=== PATIENT | female | born 1940 | race Caucasian/White ===

== ENCOUNTER 2021-05-09 10:41 | Outpatient (CLI) | payer MEDICARE, BC | END 2021-05-09 10:42 | disposition home or self-care (01) | LOC: LABBT 10:41 → EDBD 10:41 → LABBT 10:42 | PROVIDERS: ATTEND Orthopaedic Surgery | DX: Z01.818 Encounter for other preprocedural examination (principal); M17.0 Bilateral primary osteoarthritis of knee; Z20.822 Contact with and (suspected) exposure to COVID-19 | CPT/HCPCS: 71046; 80048; 81001; 85025; 85610; 86850; 86900; 86901; 87081; U0003; U0005; 93005; 93010 ==

== ENCOUNTER 2021-05-14 07:25 | Day surgery (SDC) | payer MEDICARE, BC ==
[2021-05-09 12:47] LABS: #Eosinphils 0.3 10x3/uL (0.0-0.5); #Monocytes 0.5 10x3/uL (0.0-1.1); #Neutrophils 3.4 10x3/uL (1.5-8.4); %Basophils 0.4 % (0.0-2.0); %Eosinophils 4.6 % (0.0-6.0); %Lymphocytes 25.2 % (18.0-47.0); %Monocytes 9.6 % (0.0-10.0); %Neutrophils 59.8 % (40.0-75.0); Bilirubin Neg (Negative); Blood, Urine Negative (Negative); Clarity Clear (Clear); Glucose, Urine (Dipstick) Normal (Negative); Hemoglobin 13.6 g/dL (12.0-15.5); Ketone, Urine Negative (Negative); Leukocyte Negative (Negative); Mean Corpuscular HGB CONC 33.7 g/dL (32.0-36.0); Mean Corpuscular Hemoglobin 31.6 pg (27.0-33.0); Mean Corpuscular Volume 93.7 fl (81.6-98.3); Mean Platelet Volume 9.7 fl (7.4-10.4); Nitrite Negative (Negative); Platelet Count 239 10x3/uL (150-450); Protein, Urine (Dipstick) Negative (Neg-Trace); RBC Distribution Width 12.5 % (11.5-14.5); Red Blood Cell (RBC) Count 4.31 10x6/uL (3.90-5.03); Urobilinogen Normal mg/dL (Less than 2); White Blood Cell (WBC) Count 5.6 10x3/uL (3.5-10.5)
[2021-05-09 13:21] LABS: Bacteria/HPF None Seen HPF (None Seen); RBC/HPF None Seen HPF (0-3); Squamous Epithelial None Seen HPF (0-3); WBC/HPF None Seen HPF (0-3)
[2021-05-09 13:22] LABS: INR-International Normal Ratio 0.9; Prothrombin Time 10.3 sec (9.5-12.1)
[2021-05-09 13:26] LABS: Anion Gap 14 mmol/L (10-20); BUN (Urea Nitrogen) 17 mg/dL (9.8-20.1); Calc. Creatinine Clearance 0 mL/min (70-130); Calcium 10.5 mg/dL (7.8-10.44); Carbon Dioxide 29 mmol/L (23-31); Chloride 99 mmol/L (98-107); Glucose 93 mg/dL (83-110); Potassium 5.2 mmol/L (3.5-5.1); Sodium 137 mmol/L (136-145)
[2021-05-09 23:48] LABS: SARS-CoV-2 PCR by NAA Not Detected (NotDetected)
[2021-05-10 15:39] VITALS: BMI 31.4
[2021-05-14] MEDS ORDERED: ceFAZolin 2 GM/DEX 5% 100 ML BAG ONE (07:39)
[2021-05-14] MEDS ORDERED: Tranexamic Acid 1,000 MG/10 ML VIAL ONE ×2 (07:39→12:22)
[2021-05-14] MEDS ORDERED: Sodium Chloride 0.9% 100 ML ONE (07:39)
[2021-05-14] MEDS ORDERED: Vancomycin 1.5 GRAM/300 ML BAG 1.5 GM in Premix Bag 1 BAG IVPB SCH ×2 (07:45→21:00)
[2021-05-14] MEDS ORDERED: Midazolam HCl 2 mg/2 ml Vial ONE (08:47)
[2021-05-14] MEDS ORDERED: Fentanyl 100 MCG/2 ML VIAL ONE ×6 (08:47→13:19)
[2021-05-14] MEDS ORDERED: Scopolamine 1.5 mg/72 hour Patch ONE (09:02)
[2021-05-14] MEDS ORDERED: Ondansetron PF 4 MG/2 ML Vial ONE (09:03)
[2021-05-14] MEDS ORDERED: Bupivacaine PF 0.5% 30 ML VIAL ONE (09:16)
[2021-05-14] MEDS ORDERED: PROPOFOL 200 MG/20 ML VIAL ONE (09:30)
[2021-05-14] MEDS ORDERED: Dexamethasone 20 MG/5 ML VIAL ONE (09:30)
[2021-05-14] MEDS ORDERED: Bupivacaine HCl 0.5%/Epinephrine 1:200,000/PF 30 ml Vial ONE (09:30)
[2021-05-14] MEDS ORDERED: methylPREDNISolone Acetate 40 mg/ml Vial ONE (09:43)
[2021-05-14] MEDS ORDERED: Lidocaine 1% (PF) 30 ML VIAL ONE (09:44)
[2021-05-14] MEDS ORDERED: Fentanyl 100 MCG/2 ML VIAL SLOW IVP PRN (09:54)
[2021-05-14] MEDS ORDERED: Promethazine HCl 25 MG/ML VIAL IM PRN ×3 (10:00→11:45)
[2021-05-14] MEDS ORDERED: HYDROcodone/Acetaminophen 10/325 mg Tablet PO PRN (10:00)
[2021-05-14] MEDS ORDERED: Zolpidem Tartrate 5 MG TAB PO PRN ×2 (10:00→11:45)
[2021-05-14] MEDS ORDERED: Ondansetron PF 4 MG/2 ML Vial IVP PRN ×2 (10:00→11:45)
[2021-05-14] MEDS ORDERED: Ropivacaine HCl/PF 250 ML in Premix Bag 1 BAG NERVE BLCK SCH (10:00)
[2021-05-14] MEDS ORDERED: traMADol HCl 50 MG TAB PO PRN ×2 (10:00)
[2021-05-14] MEDS ORDERED: Ondansetron HCl/PF 4 MG/2 ML Vial IVP PRN (10:49)
[2021-05-14] MEDS ORDERED: Promethazine HCl 25 MG/ML VIAL IVPB PRN (10:49)
[2021-05-14] MEDS ORDERED: diphenhydrAMINE 25 MG CAP PO PRN (11:45)
[2021-05-14] MEDS ORDERED: Tranexamic Acid 1,000 MG in Sodium Chloride 0.9% 100 ML IVPB SCH (11:45)
[2021-05-14] MEDS ORDERED: Acetaminophen 325 MG TAB PO PRN (11:45)
[2021-05-14] MEDS ORDERED: Ketorolac Tromethamine 30 MG/ML VIAL ONE (13:19)
[2021-05-14] MEDS: HYDROcodone/Acetaminophen 10/325 mg Tablet PO PRN (16:14)
[2021-05-14] MEDS: Ketorolac Tromethamine 30 MG/ML VIAL IVP SCH ×3 (16:19→23:15)
[2021-05-14] MEDS: Sodium Chloride 0.9% 1,000 ML IV SCH ×3 (16:19→23:17)
[2021-05-14] MEDS ORDERED: FLU VACC QS2021-22(65YR UP)/PF 240 MCG/0.7 ML SYRINGE IM ONE (18:15)
[2021-05-14] MEDS: ceFAZolin Sodium/D5W 2 GM in Premix Bag 1 BAG IVPB SCH ×2 (18:35→19:41)
[2021-05-14] MEDS: Aspirin 81 mg Enteric Coated Tablet PO SCH (19:52)
[2021-05-14] MEDS: Ferrous Gluconate 324 MG TAB PO SCH (19:53)
[2021-05-14] MEDS: Senokot S 8.6-50 MG TAB PO SCH (19:53)
[2021-05-15] MEDS: ceFAZolin Sodium/D5W 2 GM in Premix Bag 1 BAG IVPB SCH (01:26)
[2021-05-15] MEDS: Ketorolac Tromethamine 30 MG/ML VIAL IVP SCH ×2 (04:50→12:12)
[2021-05-15] MEDS ORDERED: Levothyroxine 175 MCG TAB PO SCH (06:00)
[2021-05-15 06:46] LABS: Hemoglobin 10.7 g/dL (12.0-16.0); Mean Corpuscular HGB CONC 33.1 g/dL (32.0-36.0); Mean Corpuscular Hemoglobin 32.5 pg (27.0-31.0); Mean Corpuscular Volume 98.2 fL (78.0-98.0); Mean Platelet Volume 6.8 fL (7.4-10.4); Platelet Count 189 thou/uL (130-400); RBC Distribution Width 11.7 % (11.5-14.5); Red Blood Cell (RBC) Count 3.28 mill/uL (4.20-5.40); White Blood Cell (WBC) Count 10.6 thou/uL (4.8-10.8)
[2021-05-15] MEDS: Aspirin 81 mg Enteric Coated Tablet PO SCH (08:32)
[2021-05-15] MEDS: Senokot S 8.6-50 MG TAB PO SCH (08:33)
[2021-05-15] MEDS: Ferrous Gluconate 324 MG TAB PO SCH (08:34)
[2021-05-15] MEDS: HYDROcodone/Acetaminophen 10/325 mg Tablet PO PRN ×2 (08:36→14:29)
[2021-05-15] MEDS ORDERED: Amlodipine 5 MG TAB PO SCH (09:00)
[2021-05-15] MEDS ORDERED: Triamterene/Hydrochlorothiazide 37.5 mg/25 mg Tablet PO SCH (09:00)
[2021-05-15] MEDS ORDERED: Multivitamin W/ Minerals 1 TAB PO SCH (09:00)
[2021-05-15] MEDS ORDERED: Lisinopril 20 MG TAB PO SCH (09:00)
[2021-05-15 12:01] VITALS: BP 116/64; TEMP 98.3
== END 2021-05-15 16:51 | disposition home or self-care (01) ==
LOC: EDBD → SDC 07:25 → SJJU 15:03 → SDC 05-15 16:51
PROVIDERS: ATTEND Orthopaedic Surgery
PROC: 3E0U33Z Introduction of Anti-inflammatory into Joints, Percutaneous Approach (ICD-10-PCS; principal; 2021-05-14)
PROC: 0SRC0J9 Replacement of Right Knee Joint with Synthetic Substitute, Cemented, Open Approach (ICD-10-PCS; 2021-05-14)
PROC: 8E0YXBZ Computer Assisted Procedure of Lower Extremity (ICD-10-PCS; 2021-05-14)
PROC: 3E0T3BZ Introduction of Anesthetic Agent into Peripheral Nerves and Plexi, Percutaneous Approach (ICD-10-PCS; 2021-05-14)
DX: M17.0 Bilateral primary osteoarthritis of knee (principal); E89.0 Postprocedural hypothyroidism; I10 Essential (primary) hypertension; E66.9 Obesity, unspecified; Z68.31 Body mass index [BMI] 31.0-31.9, adult; Z79.899 Other long term (current) drug therapy; Z20.822 Contact with and (suspected) exposure to COVID-19
CPT/HCPCS: 20610; 20985; 27447; 64448; 80048; 81001; 85025; 85027; 85610; 86850; 86900; 86901; 87081; 97110; 97116 ×2; 97139 ×2; 97530; C1713; C1776; U0003; U0005; 36415; J1100; J1885; J2001; J2250; J2405; J2704; J2795; J2920; J3010; J3370; J3490; J7050; S0020

== ENCOUNTER 2021-11-15 10:39 | Outpatient (CLI) | payer MEDICARE, BC ==
[2021-11-15 12:38] LABS: #Eosinphils 0.3 10x3/uL (0.0-0.5); #Monocytes 0.5 10x3/uL (0.0-1.1); #Neutrophils 3.8 10x3/uL (1.5-8.4); %Basophils 0.3 % (0.0-2.0); %Eosinophils 4.8 % (0.0-6.0); %Lymphocytes 21.3 % (18.0-47.0); %Monocytes 8.2 % (0.0-10.0); %Neutrophils 64.9 % (40.0-75.0); Hemoglobin 13.2 g/dL (12.0-15.5); Mean Corpuscular HGB CONC 32.6 g/dL (32.0-36.0); Mean Corpuscular Hemoglobin 31.4 pg (27.0-33.0); Mean Corpuscular Volume 96.2 fl (81.6-98.3); Mean Platelet Volume 9.6 fl (7.4-10.4); Platelet Count 253 10x3/uL (150-450); RBC Distribution Width 12.5 % (11.5-14.5); Red Blood Cell (RBC) Count 4.21 10x6/uL (3.90-5.03); White Blood Cell (WBC) Count 5.9 10x3/uL (3.5-10.5)
[2021-11-15 13:04] LABS: Anion Gap 14 mmol/L (10-20); BUN (Urea Nitrogen) 16 mg/dL (9.8-20.1); Calc. Creatinine Clearance 0 mL/min (70-130); Calcium 10.6 mg/dL (7.8-10.44); Carbon Dioxide 28 mmol/L (23-31); Chloride 100 mmol/L (98-107); Glucose 89 mg/dL (83-110); Potassium 4.3 mmol/L (3.5-5.1); Sodium 138 mmol/L (136-145)
[2021-11-16 01:01] LABS: SARS-CoV-2 PCR by NAA Not Detected (NotDetected)
== END 2021-11-15 10:40 | disposition home or self-care (01) ==
LOC: LABBT 10:39
PROVIDERS: ATTEND Orthopaedic Surgery
DX: Z01.818 Encounter for other preprocedural examination (principal); M12.812 Other specific arthropathies, not elsewhere classified, left shoulder; Z20.822 Contact with and (suspected) exposure to COVID-19
CPT/HCPCS: 80048; 85025; 93005; U0003; U0005; 93010

== ENCOUNTER 2021-11-20 06:20 | Observation (INO) | payer MEDICARE, BC ==
[2021-11-20] MEDS ORDERED: Vancomycin 1.5 GRAM/300 ML BAG 1.5 GM in Premix Bag 1 BAG IVPB SCH (07:15)
[2021-11-20] MEDS ORDERED: Tranexamic Acid 1,000 MG/10 ML VIAL ONE (07:24)
[2021-11-20] MEDS ORDERED: Sodium Chloride 0.9% 100 ML ONE (07:25)
[2021-11-20] MEDS ORDERED: Fentanyl 100 MCG/2 ML VIAL ONE ×2 (08:11→11:51)
[2021-11-20] MEDS ORDERED: Midazolam HCl 2 mg/2 ml Vial ONE (08:11)
[2021-11-20] MEDS ORDERED: fentaNYL Citrate/PF 100 MCG/2 ML SYRINGE ONE (08:32)
[2021-11-20] MEDS ORDERED: ceFAZolin (BATCH) 2 GM/100 ML BAG ONE (08:40)
[2021-11-20] MEDS ORDERED: Scopolamine 1.5 mg/72 hour Patch ONE (08:40)
[2021-11-20] MEDS ORDERED: Rocuronium Bromide 10 MG/ML (10ML VIAL) ONE (09:00)
[2021-11-20] MEDS ORDERED: PROPOFOL 200 MG/20 ML VIAL ONE (09:00)
[2021-11-20] MEDS ORDERED: Ondansetron PF 4 MG/2 ML Vial ONE ×3 (09:00→09:30)
[2021-11-20] MEDS ORDERED: Glycopyrrolate 0.2 MG/ML 5 ML SYRINGE ONE (09:00)
[2021-11-20] MEDS ORDERED: Bupivacaine HCl 0.5%/Epinephrine 1:200,000/PF 30 ml Vial ONE (09:00)
[2021-11-20] MEDS ORDERED: Dexamethasone 20 MG/5 ML VIAL ONE (09:00)
[2021-11-20] MEDS ORDERED: Lidocaine 1% PF 5 ML VIAL ONE (09:00)
[2021-11-20] MEDS ORDERED: PHENYLEPHRINE-NS 100 MCG/ML 10 ML SYRINGE ONE (09:00)
[2021-11-20] MEDS ORDERED: HYDROcodone/Acetaminophen 7.5/325 mg Tablet PO PRN ×2 (09:05)
[2021-11-20] MEDS ORDERED: Phenylephrine 10 MG/ML VIAL ONE (09:30)
[2021-11-20] MEDS ORDERED: Ropivacaine 0.2% 550 ML 550 ML NERVE BLCK SCH (09:45)
[2021-11-20] MEDS ORDERED: Ondansetron PF 4 MG/2 ML Vial IVP PRN (09:45)
[2021-11-20] MEDS ORDERED: Zolpidem Tartrate 5 MG TAB PO PRN (09:45)
[2021-11-20] MEDS ORDERED: HYDROcodone/Acetaminophen 5/325 mg Tablet PO PRN ×2 (09:45)
[2021-11-20] MEDS ORDERED: Ketorolac Tromethamine 30 MG/ML VIAL IVP PRN (09:45)
[2021-11-20] MEDS ORDERED: Fentanyl 100 MCG/2 ML VIAL IV PRN (09:45)
[2021-11-20] MEDS ORDERED: traMADol HCl 50 MG TAB PO PRN ×2 (09:45)
[2021-11-20] MEDS ORDERED: Promethazine HCl 25 MG/ML VIAL IM PRN ×2 (09:45→11:37)
[2021-11-20] MEDS ORDERED: SUGAMMADEX SODIUM 200 MG/2 ML VIAL ONE (10:34)
[2021-11-20] MEDS ORDERED: HYDROmorphone 2 MG/ML VIAL SLOW IVP PRN (11:37)
[2021-11-20] MEDS ORDERED: Promethazine HCl 25 MG/ML VIAL IVPB PRN (11:37)
[2021-11-20] MEDS ORDERED: Ondansetron HCl/PF 4 MG/2 ML Vial IVP PRN (11:37)
[2021-11-20] MEDS ORDERED: Ketorolac Tromethamine 30 MG/ML VIAL IVP SCH (12:00)
[2021-11-20] MEDS: Sodium Chloride 0.9% 1,000 ML IV SCH (13:51)
[2021-11-20] MEDS: ceFAZolin (BATCH) 2 GM in Premix Bag 1 BAG IVPB SCH (16:41)
[2021-11-21] MEDS: ceFAZolin (BATCH) 2 GM in Premix Bag 1 BAG IVPB SCH (00:04)
[2021-11-21] MEDS: Sodium Chloride 0.9% 1,000 ML IV SCH (00:21)
[2021-11-21] MEDS ORDERED: Levothyroxine 175 MCG TAB PO SCH (06:00)
[2021-11-21] MEDS ORDERED: Non-Formulary Item 1 EACH (Multivit-Min/Iron/Folic/Lutein [Centrum Silver Women] 1 TABLET PO SCH (09:00)
[2021-11-21] MEDS ORDERED: Non-Formulary Item 1 EACH (Triamterene/Hydrochlorothiazid [Triamterene-Hctz 37.5-25 Mg Cp PO SCH (09:00)
[2021-11-21] MEDS ORDERED: Amlodipine 5 mg/Benazepril 20 mg CAP PO SCH (09:00)
[2021-11-21] MEDS ORDERED: Triamterene/Hydrochlorothiazide 37.5 mg/25 mg Tablet PO SCH (09:00)
[2021-11-21] MEDS ORDERED: Multivitamin W/ Minerals 1 TAB PO SCH (09:00)
[2021-11-21 12:44] VITALS: BP 134/71; TEMP 97.9
== END 2021-11-21 13:30 | disposition home or self-care (01) ==
LOC: SDC 06:20 → SURG A 09:05
PROVIDERS: ADMIT Orthopaedic Surgery; ATTEND Orthopaedic Surgery
PROC: 0RRK00Z Replacement of Left Shoulder Joint with Reverse Ball and Socket Synthetic Substitute, Open Approach (ICD-10-PCS; principal; 2021-11-20)
PROC: 3E0T3BZ Introduction of Anesthetic Agent into Peripheral Nerves and Plexi, Percutaneous Approach (ICD-10-PCS; 2021-11-20)
DX: M12.812 Other specific arthropathies, not elsewhere classified, left shoulder (principal); E89.0 Postprocedural hypothyroidism; I10 Essential (primary) hypertension; Z79.890 Hormone replacement therapy; Z79.899 Other long term (current) drug therapy
CPT/HCPCS: 23472; 64416; 97110 ×2; 97116 ×2; 97139 ×3; 97535; A4306; C1713 ×5; C1776 ×2; J3370; 96365; 96366; G0378; J0690; J1100; J2250; J2370; J2405; J2704; J2795; J3010; J3490; J7050